=== PATIENT | male | born 2000 ===

== ENCOUNTER → 2019-07-02 | Outpatient (CLI) | payer OTHER ==
[2019-07-02 18:14] LABS: CHOL/HDL RATIO 3.7; Cholesterol 136 mg/dL (50-200); HDL Cholesterol 37 mg/dL (>39); LDL Direct Measurement 92 mg/dL (0-130); LDL/HDL RATIO 2.2; Low Density Lipoprotein Chol 82 mg/dL (0-110); Triglycerides 85 mg/dL (30-140); Very Low Density Lipoprot Chol 17 mg/dL (6-28)
== END | disposition home or self-care (01) ==
LOC: LAB 17:01 → LAB SHORT 17:01
PROVIDERS: Nurse Practitioner Family
DX: Z00.00 Encounter for general adult medical examination without abnormal findings (principal)
CPT/HCPCS: 80061; 83721